=== PATIENT | female | born 1925 | race Caucasian/White ===

== ENCOUNTER 2017-02-24 09:33 | Inpatient (IN) | payer MEDICARE ==
--- NOTE | 2017-02-24 10:12 | ED ---
General Adult HPI - General Chief complaint: Shortness of Breath Stated complaint: sob Time Seen by Provider: 02/24/17 09:40 Source: patient, RN notes reviewed Mode of arrival: wheelchair Limitations: no limitations - History of Present Illness Initial comments: This is an 89-year-old female who comes in accompanied shortness of breath per patient states the shortness of breath started a few days ago and she saw her primary medical care doctor and he wanted her to follow up with cardiology. Patient states she continued to be short of breath especially with exertion. Patient denies any chest pain or palpitations. Patient denies any fever chills or cough. Patient denies abdominal pain patient denies nausea vomiting diarrhea. Patient denies headache patient denies numbness weakness. Patient denies any leg swelling patient denies any calf tenderness. Patient denies any recent trip or travel. - Related Data Home Medications Medication Instructions Recorded Confirmed Acetaminophen [Tylenol Arthritis] 650 mg PO DAILY 02/24/17 02/24/17 Aspirin 81 mg PO DAILY 02/24/17 02/24/17 Diclofenac Sodium Gel [Voltaren 2 gm TOPICAL QID PRN 02/24/17 02/24/17 Gel] Hydrochlorothiazide [Hydrodiuril] 25 mg PO DAILY 02/24/17 02/24/17 Levothyroxine Sodium [Synthroid] 75 mcg PO WE 02/24/17 02/24/17 Levothyroxine Sodium [Synthroid] 100 mcg PO SUMOTUTHFRSA 02/24/17 02/24/17 amLODIPine [Norvasc] 2.5 mg PO DAILY 02/24/17 02/24/17 Allergies Allergy/AdvReac Type Severity Reaction Status Date / Time No Known Allergies Allergy Unverified 02/24/17 10:27 Review of Systems ROS Statement: Those systems with pertinent positive or pertinent negative responses have been documented in the HPI. ROS Other: All systems not noted in ROS Statement are negative. Past Medical History Past Medical History: Osteoarthritis (OA), Thyroid Disorder History of Any Multi-Drug Resistant Organisms: None Reported Past Surgical History: Cholecystectomy, Joint Replacement Past Psychological History: No Psychological Hx Reported Smoking Status: Never smoker Past Alcohol Use History: None Reported Past Drug Use History: None Reported General Exam - General Exam Comments Initial Comments: GENERAL: Patient is well-developed and well-nourished. Patient is nontoxic and well- hydrated and is in mild distress. Patient states she short of breath however she is oxygenating 98% on room air ENT: Neck is soft and supple. No significant lymphadenopathy is noted. Oropharynx is clear. Moist mucous membranes. Neck has full range of motion without eliciting any pain. EYES: The sclera were anicteric and conjunctiva were pink and moist. Extraocular movements were intact and pupils were equal round and reactive to light. Eyelids were unremarkable. PULMONARY: Unlabored respirations. Good breath sounds bilaterally. No audible rales rhonchi or wheezing was noted. CARDIOVASCULAR: Patient is bradycardic at 50 beats a minute ABDOMEN: Soft and nontender with normal bowel sounds. No palpable organomegaly was noted. There is no palpable pulsatile mass. SKIN: Skin is clear with no lesions or rashes and otherwise unremarkable. NEUROLOGIC: Patient is alert and oriented x3. Cranial nerves II through XII are grossly intact. Motor and sensory are also intact. Normal speech, volume and content. Symmetrical smile. MUSCULOSKELETAL: Normal extremities with adequate strength and full range of motion. No lower extremity swelling or edema. No calf tenderness. LYMPHATICS: No significant lymphadenopathy is noted PSYCHIATRIC: Normal psychiatric evaluation. Limitations: no limitations Course Vital Signs 02/24/17 02/24/17 02/24/17 09:41 09:45 11:27 Temperature 97.3 F L Pulse Rate 55 L 45 L Respiratory 18 18 18 Rate Blood Pressure 138/69 137/91 O2 Sat by Pulse 96 98 Oximetry Medical Decision Making - Medical Decision Making EKG shows sinus bradycardia 45 bpm IA interval is 188 QRSs 84 QT interval 486 QTC is 420 per patient's EKG shows no ST segment elevation or depression or T wave abnormalities are noted. Patient's heart rate dipped down into the low 40s. I spoke Dr. Tamez and he agreed to admit the patient admitted the patient I consult cardiology. - Lab Data Result diagrams: 02/24/17 10:02/24/17 10: Lab Results 02/24/17 02/24/17 02/24/17 Range/Units 10: 10: 10: WBC 4.5 (3.8-10.6) k/uL RBC 4.76 (3.80-5.40) m/uL Hgb 15.6 (11.4-16.0) gm/dL Hct 46.5 H (34.0-46.0) % MCV 97.8 (80.0-100.0) fL MCH 32.8 (25.0-35.0) pg MCHC 33.5 (31.0-37.0) g/dL RDW 14.2 (11.5-15.5) % Plt Count 173 (150-450) k/uL Neutrophils % 59 % Lymphocytes % 30 % Monocytes % 7 % Eosinophils % 2 % Basophils % 1 % Neutrophils # 2.7 (1.3-7.7) k/uL Lymphocytes # 1.4 (1.0-4.8) k/uL Monocytes # 0.3 (0-1.0) k/uL Eosinophils # 0.1 (0-0.7) k/uL Basophils # 0.0 (0-0.2) k/uL PT (9.0-12.0) sec INR (<1.2) APTT (22.0-30.0) sec D-Dimer (<0.60) mg/L FEU Sodium 140 (137-145) mmol/L Potassium 3.7 (3.5-5.1) mmol/L Chloride 105 (98-107) mmol/L Carbon Dioxide 24 (22-30) mmol/L Anion Gap 11 mmol/L BUN 16 (7-17) mg/dL Creatinine 0.90 (0.52-1.04) mg/dL Est GFR (MDRD) Af Amer >60 (>60 ml/min/1.73 sqM) Est GFR (MDRD) Non-Af 59 (>60 ml/min/1.73 sqM) Glucose 92 (74-99) mg/dL Calcium 9.7 (8.4-10.2) mg/dL Total Bilirubin 0.8 (0.2-1.3) mg/dL AST 24 (14-36) U/L ALT 23 (9-52) U/L Alkaline Phosphatase 80 (38-126) U/L Total Creatine Kinase 37 (30-135) U/L CK-MB (CK-2) 0.4 (0.0-2.4) ng/mL CK-MB (CK-2) Rel Index 1.1 Troponin I <0.012 (0.000-0.034) ng/mL NT-Pro-B Natriuret Pep pg/mL Total Protein 7.1 (6.3-8.2) g/dL Albumin 4.1 (3.5-5.0) g/dL 02/24/17 02/24/17 Range/Units 10:01 10:01 WBC (3.8-10.6) k/uL RBC (3.80-5.40) m/uL Hgb (11.4-16.0) gm/dL Hct (34.0-46.0) % MCV (80.0-100.0) fL MCH (25.0-35.0) pg MCHC (31.0-37.0) g/dL RDW (11.5-15.5) % Plt Count (150-450) k/uL Neutrophils % % Lymphocytes % % Monocytes % % Eosinophils % % Basophils % % Neutrophils # (1.3-7.7) k/uL Lymphocytes # (1.0-4.8) k/uL Monocytes # (0-1.0) k/uL Eosinophils # (0-0.7) k/uL Basophils # (0-0.2) k/uL PT 11.2 (9.0-12.0) sec INR 1.1 (<1.2) APTT 23.3 (22.0-30.0) sec D-Dimer 0.77 H (<0.60) mg/L FEU Sodium (137-145) mmol/L Potassium (3.5-5.1) mmol/L Chloride (98-107) mmol/L Carbon Dioxide (22-30) mmol/L Anion Gap mmol/L BUN (7-17) mg/dL Creatinine (0.52-1.04) mg/dL Est GFR (MDRD) Af Amer (>60 ml/min/1.73 sqM) Est GFR (MDRD) Non-Af (>60 ml/min/1.73 sqM) Glucose (74-99) mg/dL Calcium (8.4-10.2) mg/dL Total Bilirubin (0.2-1.3) mg/dL AST (14-36) U/L ALT (9-52) U/L Alkaline Phosphatase (38-126) U/L Total Creatine Kinase (30-135) U/L CK-MB (CK-2) (0.0-2.4) ng/mL CK-MB (CK-2) Rel Index Troponin I (0.000-0.034) ng/mL NT-Pro-B Natriuret Pep 220 pg/mL Total Protein (6.3-8.2) g/dL Albumin (3.5-5.0) g/dL Disposition Clinical Impression: Dyspnea, Symptomatic bradycardia Disposition: ADMITTED IP TO THIS HOSP Referrals: Eliud Luna MD [Primary Care Provider] - 1-2 days Time of Disposition: 12:53
[2017-02-24 10:23] LABS: Basophils % (A) 1 %; CH 33.6; CHCM 34.5; Eosinophils # (A) 0.1 k/uL (0-0.7); Eosinophils % (A) 2 %; HCT 46.5 % (34.0-46.0); HDW 2.32; HGB 15.6 gm/dL (11.4-16.0); Luc # (Auto) 0.09; Luc % (Auto) 2; Lymphocytes # (A) 1.4 k/uL (1.0-4.8); Lymphocytes % (A) 30 %; MCH 32.8 pg (25.0-35.0); MCHC 33.5 g/dL (31.0-37.0); MCV 97.8 fL (80.0-100.0); Mean Platelet Volume 9.6; Monocytes # (A) 0.3 k/uL (0-1.0); Monocytes % (A) 7 %; Neutrophils # (A) 2.7 k/uL (1.3-7.7); Neutrophils % (A) 59 %; RBC 4.76 m/uL (3.80-5.40); RDW 14.2 % (11.5-15.5); WBC 4.5 k/uL (3.8-10.6)
[2017-02-24 10:28] LABS: INR 1.1 (<1.2)
[2017-02-24 10:29] LABS: Partial Thromboplastin Time 23.3 sec (22.0-30.0); Prothrombin Time 11.2 sec (9.0-12.0)
[2017-02-24 10:35] LABS: ALT 23 U/L (9-52); AST 24 U/L (14-36); Alkaline Phosphatase 80 U/L (38-126); Anion Gap 11 mmol/L; Blood Urea Nitrogen 16 mg/dL (7-17); Calcium 9.7 mg/dL (8.4-10.2); Carbon Dioxide 24 mmol/L (22-30); Chloride 105 mmol/L (98-107); Glucose 92 mg/dL (74-99); Non-African American GFR(MDRD) 59 (>60 ml/min/1.73 sqM); Potassium 3.7 mmol/L (3.5-5.1); Sodium 140 mmol/L (137-145); Total Bilirubin 0.8 mg/dL (0.2-1.3); Total Protein 7.1 g/dL (6.3-8.2)
[2017-02-24 10:40] LABS: Creatine Kinase 37 U/L (30-135)
[2017-02-24 10:53] LABS: Creatine Kinase MB 0.4 ng/mL (0.0-2.4); Troponin I <0.012 ng/mL (0.000-0.034)
[2017-02-24] MEDS ORDERED: RX INFO: IV CONTRAST WAS GIVEN 1 EACH MISC MISCELLANE PRN (11:26)
--- NOTE | 2017-02-24 11:44 | XR ---
EXAMINATION TYPE: XR chest 2V DATE OF EXAM: 02/24/2017 HISTORY: difficulty breathing. REFERENCE: NONE. FINDINGS: The lungs are clear. Pleural spaces are clear. The heart is not enlarged. IMPRESSION: NO ACUTE INTRATHORACIC ABNORMALITY.
--- NOTE | 2017-02-24 12:36 | CT ---
EXAMINATION TYPE: CT chest angio for PE DATE OF EXAM: 02/24/2017 COMPARISON: NONE HISTORY: SOB, burping CT DLP: 374.0 mGycm Automated exposure control for dose reduction was used. CONTRAST: CT Chest for pulmonary embolism performed with with IV Contrast, patient injected with 80 mL of Visip aque 320. FINDINGS: There is a tiny, calcified granuloma along the major fissure on the right. The lungs are ot herwise clear. There is no significant axillary, internal mammary, mediastinal or hilar adenopathy. There is no evidence of pulmonary embolus. The aorta is normal in caliber without evidence of dissection. There is no pleural or pericardial fluid. The heart is not enlarged. There is a moderate hiatal hernia. There is probable parapelvic cysts involving both kidneys. Visualized portions of the upper abdomen a re otherwise unremarkable. The gallbladder is absent. There is hypertrophic spondylosis within the spine. There are 2 sclerotic foci within the left yahir l head. No other definite sclerotic foci are seen. IMPRESSION: 1. THIS EXAMINATION IS NEGATIVE FOR PULMONARY EMBOLUS. 2. EVIDENCE OF OLD GRANULOMATOUS DISEASE. 3. MODERATE HIATAL HERNIA. 4. DEGENERATIVE CHANGES WITHIN THE SPINE. 5. I SUSPECT BILATERAL PELVOCALIECTASIS INVOLVING BOTH KIDNEYS. 7. SCLEROTIC FOCI IN THE LEFT HUMERAL HEAD. NUCLEAR MEDICINE WHOLE BODY BONE SCAN WOULD BE SUGGESTED TO EXCLUDE METASTASES.
[2017-02-24] MEDS ORDERED: NITROGLYCERIN SL TABS 0.4 MG TAB SUBLINGUAL PRN (12:53)
[2017-02-24 15:35] VITALS: BMI 28.5
[2017-02-24 16:47] LABS: Creatine Kinase 36 U/L (30-135)
--- NOTE | 2017-02-24 16:52 | HP ---
HISTORY AND PHYSICAL DATE OF SERVICE: 02/24/2017. CHIEF COMPLAINT: Shortness of breath. HISTORY: This 89-year-old woman with an past medical history of multiple medical problems including degenerative joint disease, hypothyroidism, cholecystectomy being followed by Dr. Luna in the outpatient setting, not feeling well over the past several days. Patient had multiple symptomatology and burning sensation, history of hip pain. The patient also had shortness of breath for the last few days. Cardiology evaluation has been recommended in the outpatient setting, but because of increased shortness of breath especially on exertion, the patient came to [facility] and admitted for further evaluation and treatment. Evaluation showed NT proBNP is only 220 and basic labs are negative. Otherwise the patient also had a chest x-ray, which is personally reviewed by me that showed no acute abnormality and EKG was also done on the day of admission which showed bradycardia with heart rate about 45. Chest CTA was also done which showed no evidence of pulmonary embolism but there is old granulomatous, moderate hiatal hernia and DJD. There is no history of fever or rigors. No headache, loss of consciousness or seizures. PAST MEDICAL HISTORY: DJD, history of hypothyroidism, cholecystectomy, hysterectomy. MEDICATIONS: Prior to admission include: 1. Tylenol 650 daily. 2. Voltaren 2 g daily q.i.d. p.r.n. 3. Aspirin 81 mg daily. 4. Norvasc 2.5 mg daily. 5. Synthroid 150 mcg Saturday and 100 mcg other days. 6. HydroDIURIL 25 mg daily. ALLERGIES: ASPIRIN, NITROGLYCERIN. FAMILY HISTORY: No history of cancer in the family. SOCIAL HISTORY: No smoking, no alcohol intake. REVIEW OF SYSTEMS: ENT: No diminished hearing or vision. CARDIOVASCULAR: As mentioned earlier. RESPIRATORY: As mentioned earlier. GI: No nausea. : No dysuria. NERVOUS SYSTEM: No numbness or weakness. ALLERGY/IMMUNOLOGY: No asthma or hayfever. MUSCULOSKELETAL: As mentioned earlier. HEMATOLOGY/ONCOLOGY: No history of anemia. ENDOCRINE: As mentioned earlier. CONSTITUTIONAL: As mentioned earlier. DERMATOLOGY: Negative. RHEUMATOLOGY: Negative. PSYCHIATRY: As mentioned earlier. PHYSICAL EXAM: Patient is alert, oriented x3. Pulse is 45, blood pressure 137/91, respiration 18, temperature 97.2, pulse ox 98% room air. HEENT: Conjunctivae normal. Oral mucosa moist. NECK: No jugular venous distention. No lymph node enlargement. CARDIOVASCULAR: S1, S2. No S3, no S4. RESPIRATORY: Breath sounds diminished in the bases. A few scattered rhonchi. No crackles. ABDOMEN: Soft, nontender. No mass palpable. LEGS: No edema, no swelling. NERVOUS SYSTEM: Higher functions as mentioned earlier. Moves all four limbs. No focal deficits. LYMPHATICS: No lymphadenopathy in the neck, axillae or groin. SKIN: No rash, ulcer or bleeding. LABS: At this time shows WBC 4.2, hemoglobin 15.6, hemoglobin 11.2. ASSESSMENT: 1. Shortness of breath for evaluation rule out cardiac causes. 2. Bradycardia sinus. 3. Elevated D-dimer with no evidence of pulmonary embolus. 4. History of degenerative joint disease. 5. Hypothyroidism. 6. History of cholecystectomy. RECOMMENDATION: This 89-year-old woman who presented with multiple complex medical issues, will monitor the patient closely. Continue the current medications, continue symptomatic treatment. I recommend a TSH and I would also recommend resume the home medications. Otherwise exact etiology of the shortness of breath is unclear at this time. I would recommend a full cardiac workup, NT proBNP is not elevated but I will recommend a 2D echo with Doppler to rule out the possibility of congestive heart failure. Otherwise cardiology consultations. I would also consult pulmonology for continued follow up with COPD also. Further evaluation COPD as well. Otherwise the prognosis is guarded because of multiple complex medical issues. Bradycardia has been noted. Further recommendations to follow. Copy of dictation forwarded to Dr. Luna, who is the primary physician. MMODL / IJN: [id number] /
[2017-02-24 16:59] LABS: Creatine Kinase MB 0.5 ng/mL (0.0-2.4); Troponin I <0.012 ng/mL (0.000-0.034)
[2017-02-24] MEDS: LEVOTHYROXINE 100 MCG TAB PO SCH (20:31)
[2017-02-24] MEDS: DICLOFENAC SODIUM GEL 100 GM TUBE TOPICAL PRN (21:14)
[2017-02-24 23:05] LABS: Creatine Kinase 56 U/L (30-135)
[2017-02-24 23:17] LABS: Troponin I <0.012 ng/mL (0.000-0.034)
[2017-02-25 02:29] LABS: Cholesterol 188 mg/dL (<200); HDL Cholesterol 56 mg/dL (40-60)
[2017-02-25] MEDS: LEVOTHYROXINE 100 MCG TAB PO SCH (06:17)
[2017-02-25] MEDS ORDERED: ACETAMINOPHEN TAB 325 MG TAB PO PRN (09:00)
[2017-02-25] MEDS: DICLOFENAC SODIUM GEL 100 GM TUBE TOPICAL PRN ×2 (09:55→15:53)
[2017-02-25] MEDS: amLODIPine 2.5 MG TAB PO SCH (09:56)
[2017-02-25] MEDS: HYDROCHLOROTHIAZIDE 25 MG TAB PO SCH (09:57)
[2017-02-25] MEDS: ASPIRIN 325 MG TAB PO SCH (09:57)
--- NOTE | 2017-02-25 10:57 | ECHOF ---
Referral Reason:chf?? MEASUREMENTS -------- HEIGHT: 170.2 cm WEIGHT: 82.6 kg BP: 119/70 RVIDd: 3.0 cm (< 3.3) IVSd: 1.0 cm (0.6 - 1.1) LVIDd: 4.2 cm (3.9 - 5.3) LVPWd: 1.0 cm (0.6 - 1.1) IVSs: 1.6 cm LVIDs: 2.6 cm LVPWs: 1.4 cm LA Diam: 3.4 cm (2.7 - 3.8) LAESV Index (A-L): 33.71 ml/m Ao Diam: 3.2 cm (2.0 - 3.7) AV Cusp: 2.2 cm (1.5 - 2.6) MV EXCURSION: 14.577 mm (> 18.000) MV EF SLOPE: 66 mm/s (70 - 150) EPSS: 0.3 cm MV E Ahmet: 0.76 m/s MV DecT: 262 ms MV A Ahmet: 1.08 m/s MV E/A Ratio: 0.70 RAP: 5.00 mmHg RVSP: 30.53 mmHg FINDINGS -------- Resting bradycardia (HR<60bpm). This was a technically good study. The left ventricular size is normal. Left ventricular wall thickness is normal. Overall left ventricular systolic function is normal with, an EF between 55 - 60 %. The right ventricle is normal in size. LA is midly dilated 29-33ml/m2. The right atrium is normal in size. There is mild aortic valve sclerosis. Mild mitral annular calcification present. There is trace to mild mitral regurgitation. Mild tricuspid regurgitation present. Right ventricular systolic pressure is normal at < 35 mmHg. Trace/mild (physiologic) pulmonic regurgitation. The aortic root size is normal. Normal inferior vena cava with normal inspiratory collapse consistent with estimated right atrial pressure of 5 mmHg. There is no pericardial effusion. CONCLUSIONS -------- 1. Resting bradycardia (HR<60bpm). 2. Mild mitral annular calcification present. 3. There is trace to mild mitral regurgitation. 4. Mild tricuspid regurgitation present. 5. Right ventricular systolic pressure is normal at < 35 mmHg. 6. Trace/mild (physiologic) pulmonic regurgitation. 7. The aortic root size is normal. 8. Normal inferior vena cava with normal inspiratory collapse consistent with estimated right atrial pressure of 5 mmHg. 9. There is no pericardial effusion. 10. This was a technically good study. 11. The left ventricular size is normal. 12. Left ventricular wall thickness is normal. 13. Overall left ventricular systolic function is normal with, an EF between 55 - 60 %. 14. The right ventricle is normal in size. 15. LA is midly dilated 29-33ml/m2. 16. The right atrium is normal in size. 17. There is mild aortic valve sclerosis. TOY DESIGNER: Angela Sprague RDCS
--- NOTE | 2017-02-25 12:35 | CONS ---
CONSULTATION Mrs. Holloway is an 89-year-old female with no prior significant cardiac history except for history of hypertension, who has significant hip discomfort, who presented with symptoms of dyspnea and predominantly hip discomfort. She has not been able to ambulate. She has history of neuropathy. In the emergency room, she was noted to have sinus bradycardia. Cardiology consultation was requested. The patient denies any symptoms of chest pain. She denies any associated dizziness. She denies any syncope. She has no palpitation or knowledge of any prior cardiac history. On the monitor, she is in sinus mechanism. There was no significant pauses and she had variant heart rate with the heart rate up in the 60s. She has no peripheral edema. No PND. No orthopnea. Her coronary risk factors are remarkable for history of hypertension. She is nondiabetic, nonsmoker. MEDICATION: Her medications at home include amlodipine 2.5 mg daily, hydrochlorothiazide 25 mg daily, levothyroxine, aspirin, and Voltaren gel. REVIEW OF SYSTEMS: RESPIRATORY SYSTEM: She has no history of documented asthma, emphysema or bronchitis. GI SYSTEM: No recent GI bleed. No peptic ulcer disease. SYSTEM: No dysuria or hematuria. NERVOUS SYSTEM: No history of stroke or seizure. MUSCULOSKELETAL: She has severe hip discomfort bilaterally with history of neuropathy. PHYSICAL EXAMINATION: She is an 89-year-old female; alert, oriented, in no apparent distress. Blood pressure 119/70 with a heart rate in the mid 50s. The lowest heart rate documented was 45. HEAD: Normocephalic. EYES: Sclerae anicteric. NECK: Good upstroke. No bruit. No jugular venous distention. LUNGS: Clear to auscultation. HEART: Regular rhythm S1, S2. No S3. No rub or gallop appreciated. ABDOMEN: Soft, nontender. Positive bowel sounds. No organomegaly. EXTREMITIES: No edema. Intact distal pulses. LAB DATA: Lab data revealed troponin less than 0.012 for 3 samples. Free T4 1.83. BUN and creatinine of 16.9. Potassium 3.7. Her hemoglobin 15.6. D-dimer of 0.77. She underwent CT angiogram of the chest that revealed no evidence of pulmonary embolism. There was moderate hiatal hernia and sclerotic foci in the left humeral head. EKG was sinus mechanism rate in the 40s with no acute ST-segment changes. IMPRESSION: 1. Sinus bradycardia with no clear associated symptoms. 2. Hip discomfort with history of arthritis. 3. Episode of dyspnea with no evidence to suggest congestive heart failure or fluid overload. I do not believe that her bradycardia has any relation to her symptoms. 4. History of hypothyroidism, treated. RECOMMENDATION: From the cardiac standpoint, I will review the results for echocardiogram and if there is no significant abnormality, then no further cardiac workup will be needed. The patient may benefit from a Holter monitor as an outpatient to monitor her heart rate, but at this time, I do not see any evidence to suggest a need for a pacemaker. Thank you for this consult. We will follow with you. QUINN / JULIANAN: [id number] /
--- NOTE | 2017-02-25 14:19 | P.CNPUL ---
History of Present Illness Consult date: 02/25/17 Reason for consult: dyspnea Chief complaint: Shortness of breath History of present illness: Consult dated 02/25/2017 89-year-old female who apparently comes in complaining of shortness of breath. Apparently saw her primary physician Dr. Eliud Gutiérrez and he wanted her to go to the emergency room to be evaluated. She was noted to have a very slow heart rate is noted in the mid 40s. On talking to her, she apparently complains mostly of burping. Doesn't really admit to some shortness of breath. Also was told about the low heart rate. Denies any chest pain or chest discomfort. No shortness of breath. The patient wasn't even aware of the slow heart rate and denies any lightheadedness dizziness or vertigo. Actually feeling pretty well today. Very poor historian. Family members in the room. Most of the history is obtained from the family members and also the ER anay by Dr. Ernesto Fuller. She has a history of arthritis hypertension hypothyroidism. Other than that she is relatively healthy. Review of Systems A 12 point review of systems is mostly positive for burping. She apparently does admit to some shortness of breath although her history is not very good. Very poor history computer graphic designer. Most of the history is obtained from the ER anay and also by the family members were at the bedside. Past Medical History Past Medical History: Osteoarthritis (OA), Thyroid Disorder History of Any Multi-Drug Resistant Organisms: None Reported Past Surgical History: Cholecystectomy, Hysterectomy, Joint Replacement Past Anesthesia/Blood Transfusion Reactions: No Reported Reaction Past Psychological History: No Psychological Hx Reported Smoking Status: Never smoker Past Alcohol Use History: None Reported Past Drug Use History: None Reported - Past Family History Father Family Medical History: Cancer Mother Family Medical History: Congestive Heart Failure (CHF) Medications and Allergies Home Medications Medication Instructions Recorded Confirmed Type Acetaminophen [Tylenol Arthritis] 650 mg PO DAILY 02/24/17 02/24/17 History Aspirin 81 mg PO DAILY 02/24/17 02/24/17 History Diclofenac Sodium Gel [Voltaren 2 gm TOPICAL QID PRN 02/24/17 02/24/17 History Gel] Hydrochlorothiazide [Hydrodiuril] 25 mg PO DAILY 02/24/17 02/24/17 History Levothyroxine Sodium [Synthroid] 75 mcg PO WE 02/24/17 02/24/17 History Levothyroxine Sodium [Synthroid] 100 mcg PO SUMOTHONEYSA 02/24/17 02/24/17 History amLODIPine [Norvasc] 2.5 mg PO DAILY 02/24/17 02/24/17 History Allergies Allergy/AdvReac Type Severity Reaction Status Date / Time No Known Allergies Allergy Unverified 02/24/17 10:27 Physical Exam Osteopathic Statement: *. No significant issues noted on an osteopathic structural exam other than those noted in the History and Physical/Consult. Vitals: Vital Signs Temp Pulse Pulse Resp BP BP Pulse Ox 02/25/17 11:49 97.7 F 48 L 18 126/88 96 02/25/17 08:00 96.9 F L 46 L 16 144/69 96 02/25/17 04:00 96.5 F L 54 L 18 119/70 93 L 02/25/17 00:00 97.6 F 50 L 19 125/55 97 02/24/17 20:00 98.5 F 56 L 19 119/72 95 02/24/17 16:00 97.8 F 46 L 17 132/80 95 02/24/17 15:00 97.8 F 48 L 16 134/79 95 02/24/17 14:17 97.5 F L 48 L 16 149/65 97 Intake and Output 02/24/17 02/25/17 02/25/17 22:59 06:59 14:59 Intake Total 50 Output Total 0 1000 Balance 0 -950 Intake: Oral 50 Output: Urine 0 1000 Other: Voiding Method Toilet Toilet Toilet # Voids 2 Weight 82.6 kg 82.7 kg No acute distress, oriented 3. HEENT examination is grossly unremarkable. Mucous membranes are moist. Neck supple. Full range of motion. No adenopathy or thyromegaly. Cardiovascular examination reveals regular rhythm rate. Heart rate in the mid 40s. No murmur. No S3-S4. S1 and S2 appear normal. Lungs are clear breath sounds are equal. No wheezes or rhonchi. No crackles. Abdomen soft bowel sounds are heard. Extremities are intact. No cyanosis clubbing or significant edema. Skin without rash. Neurologic examination is prepared nonfocal. Results - Laboratory Findings CBC and BMP: 02/24/17 10:01 02/24/17 10:01 PT/INR, D-dimer PT 11.2 sec (9.0-12.0) 02/24/17 10:01 INR 1.1 (<1.2) 02/24/17 10:01 D-Dimer 0.77 mg/L FEU (<0.60) H 02/24/17 10:01 Abnormal lab findings: Abnormal Labs 02/24/17 02/24/17 02/24/17 10:01 10: 10:01 Hct 46.5 H D-Dimer 0.77 H LDL Cholesterol, Calc TSH 0.032 L 02/24/17 10:01 Hct D-Dimer LDL Cholesterol, Calc 103 H TSH - Diagnostic Findings Chest x-ray: image reviewed CT scan - chest: image reviewed (X-rays labs and medications are all reviewed.) Assessment and Plan (1) Hypertension Status: Acute (2) Hypothyroidism Status: Acute (3) Arthritis Status: Acute (4) Dyspnea Status: Acute (5) Symptomatic bradycardia Status: Acute Plan: Plan The patient was admitted to the hospital primarily because of her low heart rate. She does not appear to be relatively relatively symptomatic from it. She is not lightheaded dizzy. No chest pain. Doesn't have any vertigo. Does not appear to be short of breath at this time. She is very poor historian. Not really sure what brought into the hospital initially. We'll continue to follow. Cardiology input is appreciated. Time with Patient: Greater than 30
--- NOTE | 2017-02-25 17:47 | PN ---
PROGRESS NOTE DATE OF SERVICE: 02/25/2017 ATTENDING NOTE: This patient was seen and examined by me. I discussed with my nurse practitioner, Ms. Cutler. The patient was brought in for a multitude of symptoms. She says that she hurts in different joints, has neuropathy, has difficulty walking, just feels tired and rundown. Appetite is fair. Breathing is relatively okay. No orthopnea. No fever. No cough. Family members are present at the bedside. PHYSICAL EXAMINATION: Temperature 96.9, pulse 46, respiration 16, blood pressure 140/69, pulse ox 96% room air. GENERAL APPEARANCE: Sitting on bed. Comfortable. Asking for food. Lungs are clear. CARDIOVASCULAR: First and second sounds normal. INVESTIGATIONS: Troponin negative. TSH 0.032. ASSESSMENT: 1. Subclinical hyperthyroidism, probably from a bit of overreplacement. 2. Primary osteoarthritis multiple joints, bilateral. 3. Peripheral neuropathy, idiopathic, causing gait dysfunction. 4. Benign forgetfulness of the elderly. 5. Physiological bradycardia. PLAN: Cardiology was consulted when I saw this patient this morning; awaiting their input. This may not be entirely clinically relevant. I do not see a pulmonary issue. Will change the patient's dose of Synthroid to 88 mcg a day. Care was discussed with the family members at the bedside. Questions were answered. Everything else being negative, patient probably can go back home tomorrow. MMODL / IJN: [id number] /
--- NOTE | 2017-02-25 18:07 | P.PN ---
Progress Note - Text DATE OF SERVICE: 02/25/2017 PRESENTING COMPLAINT: Shortness of breath HISTORY OF PRESENT ILLNESS: 89-year-old female percent with not feeling well, symptoms included shortness of breath, hip pain feeling tired. Found to be bradycardic and was admitted for the same. INTERVAL HISTORY: Patient lying in bed appears comfortable. Continues to be bradycardic, cardiology will review echocardiogram. Has not been out of bed as she has concerns of balance problems. Is able to walk to the bathroom with assistance. Tolerating her diet. REVIEW OF SYSTEMS: Done for constitutional ,cardiovascular, GI, pulmonary with relevant findings as above. CURRENT MEDICATIONS Norvasc, Voltaren gel, hydro-Diuril, Synthroid,. PHYSICAL EXAM VITAL SIGNS: Temperature 96.9, pulse 46, respiratory rate 16, blood pressure 144/69, oxygen saturation 96% on room air. GENERAL APPEARANCE: Lying in bed, not in distress. EYES: Pupils equal. Conjunctiva normal. NECK: JVD not raised. Mass not palpable. RESPIRATORY: Respiratory effort normal. Lungs diminished to auscultation. CARDIOVASCULAR: First and second sounds normal. No edema. ABDOMEN: Soft. Liver and spleen not palpable. No tenderness. No mass palpable. PSYCHIATRY: Alert and oriented x3. Mood and affect normal. INVESTIGATIONS: None new ASSESSMENT: -Subclinical hyperthyroidism, probably from a bit of over replacement. -Primary osteoarthritis multiple joints, bilateral. -Peripheral neuropathy, idiopathic causing gait dysfunction. -Benign forgetfulness of the elderly. -Physiologic bradycardia. PLAN: Cardiology review the echocardiogram if no abnormalities seen recommending a Holter monitor. Plan of care discussed with the patient and the family at the bedside. They are in Agreement. We will continue to follow closely. JIG BUILDER statement: Patient was seen and examined by nurse practitioner Lauryn Cutler and all elements of the case discussed with attending Dr. Nichols
[2017-02-26] MEDS ORDERED: LEVOTHYROXINE 88 MCG TAB PO SCH (06:30)
[2017-02-26] MEDS: DICLOFENAC SODIUM GEL 100 GM TUBE TOPICAL PRN (08:38)
[2017-02-26] MEDS: HYDROCHLOROTHIAZIDE 25 MG TAB PO SCH ×2 (08:39→10:00)
[2017-02-26] MEDS: amLODIPine 2.5 MG TAB PO SCH ×2 (08:39→10:00)
[2017-02-26] MEDS: ASPIRIN 325 MG TAB PO SCH ×2 (08:39→10:00)
[2017-02-26 11:50] VITALS: BP 125/56; PULSE 49; RESP 16; TEMP 98.3
--- NOTE | 2017-02-26 12:19 | P.PN ---
Subjective Progress note dated 02/26/2017 This is an 89-year-old female patient who was seen in consultation on February 25. She apparently came with complaints of shortness of breath. She apparently saw her primary physician and he wanted her to go to the emergency room not only for the shortness of breath but more importantly for the fact that her heart rate was very slow in the mid 40s. Her major complaint we saw her yesterday was that of burping. Did not really admitting Alec shortness of breath. No chest pain. No chest discomfort. No fever chills nausea vomiting or diarrhea. She is feeling better today. She is waiting to see the veneer stacker. Both her and her have questions for the veneer stacker. She has a history of arthritis hypertension and hypothyroidism. Objective - Vital Signs Vital signs: Vital Signs Temp 98.3 F 02/26/17 11:47 Pulse 49 L 02/26/17 11:47 Resp 16 02/26/17 11:47 BP 125/56 02/26/17 11:47 Pulse Ox 93 L 02/26/17 11:47 Intake & Output 02/25/17 02/26/17 02/26/17 18:59 06:59 18:59 Intake Total 130 Output Total 300 Balance 130 -300 Weight 82.9 kg Intake: IV 10 normal saline flush 10 Oral 120 Output: Urine 300 Other: Voiding Method Toilet Toilet Toilet # Voids 1 - Exam No acute distress, oriented 3. HEENT examination is grossly unremarkable. Mucous membranes are moist. No oral lesions. Neck supple. Full range of motion. No adenopathy thyromegaly or neck vein distention. Cardiovascular examination reveals bradycardia. Heart rate mid 40s. S1-S2 normal. No S3-S4. No murmurs. Clear breath sounds. No wheezes or rhonchi. No crackles. Abdomen soft bowel sounds are heard. Extremities are intact. Mild edema. No cyanosis or clubbing. Neurologic examination is prepared nonfocal. Skin is without rash. - Labs CBC & Chem 7: 02/24/17 10:01 02/24/17 10:01 Assessment and Plan (1) Hypertension Status: Acute (2) Hypothyroidism Status: Acute (3) Arthritis Status: Acute (4) Dyspnea Status: Acute (5) Symptomatic bradycardia Status: Acute Plan: Plan The patient was admitted to the hospital primarily because of her low heart rate. She does not appear to be relatively relatively symptomatic from it. She is not lightheaded dizzy. No chest pain. Doesn't have any vertigo. Does not appear to be short of breath at this time. She is very poor historian. Not really sure what brought into the hospital initially. We'll continue to follow. Cardiology input is appreciated. Plan dated 02/26/2017 The patient is waiting to see the veneer stacker. She's here with her . She has no neurologic symptoms such as lightheadedness dizziness or vertigo. She appears not having shortness of breath or difficulty breathing. Not having any further problems with burping or anything like that. We'll await the input by cardiology. Her primary doctor Dr. Eliud Luna. From our perspective she is stable. Time with Patient: Less than 30
--- NOTE | 2017-02-26 15:06 | PN ---
PROGRESS NOTE Mrs. Holloway is an 89-year-old female who presented with symptoms of fatigue and she had sinus bradycardia with no significant pauses. She continues to be fatigued although on the monitor she continues to be in sinus mechanism with no malignant bradyarrhythmia. She denies any chest pain. She denies any dizziness or palpitation. She continues to be at this time on amlodipine 2.5 mg daily, aspirin once a day, hydrochlorothiazide 25 mg daily, levothyroxine, baclofen. PHYSICAL EXAMINATION: Blood pressure 125/60 with a heart in the 50's. LUNGS: Clear. HEART: Regular rate and rhythm, S1, S2. No S3 with systolic murmur. No diastolic murmur. ABDOMEN: Soft, nontender. EXTREMITIES: No edema. LAB DATA: Revealed troponin less than 0.012. Her echocardiogram revealed preserved ventricular size and systolic function. IMPRESSION: 1. Sinus bradycardia with no malignant bradyarrhythmia to require a pacemaker at this time. 2. History of arthritis. 3. Fatigue of unclear etiology. RECOMMENDATION: From the cardiac standpoint, she should be able to be discharged home and will obtain a 24-hour Holter monitor as an outpatient to see if she has any significant pauses and if so, then she may be a candidate for a permanent pacemaker. She will follow up with Dr. Pugh as an outpatient. QUINN / JULIANAN: [id number] /
--- NOTE | 2017-02-26 18:08 | P.DS ---
Providers Date of admission: 02/24/17 12:53 Expected date of discharge: 02/26/17 Attending physician: Anmol Nichols Consults: 02/24/17 12:53 Consult Physician Urgent Consulting Provider: [facility] Reason/Comments: Symptomatic bradycardia Do you want consulting provider notified?: Yes 02/24/17 15:58 Consult Physician Routine Consulting Provider: Shirley Renae Reason/Comments: copd?? Do you want consulting provider notified?: Yes Primary care physician: [facility] Course: FINAL DIAGNOSES: -Subclinical hyperthyroidism, probably from a bit of over replacement. -Primary Kevin arthritis multiple joints bilateral. -Peripheral neuropathy, idiopathic causing gait dysfunction. -Benign forgetfulness of the elderly. -physiologic bradycardia. HOSPTIAL COURSE: This an 89-year-old female who presented with not feeling well, symptoms include shortness of breath hip pain feeling tired. Diagnostic testing revealed bradycardia the patient was admitted for the same. Cardiology was consulted, medications adjusted, no bradycardia arrhythmia noted. Determined a 24-hour Holter monitor to evaluate for any significant pauses and to determine if she is a candidate for pacemaker. Overall condition improved, feeling less tired than on admission, able to ambulate to the bathroom independently, tolerating her diet eating 50-75% of her meals, moving her bowels. Condition stabilized and patient is appropriate for discharge. PHYSICAL EXAM: CARDIOVASCULAR: First and second sound noted no edema RESPIRATORY: Effort normal lungs clear to auscultation MUSKULOSKELETAL: Ambulatory with a steady gait PSYCHIATRY: Alert and oriented 3 mood and affect normal Patient was seen and examined by nurse practitioner Lauryn Cutler in all elements of the case discussed with attending Dr. Nichols DISPOSITION: Discharge home to the care of her family Plan - Discharge Summary New Discharge Prescriptions: New Levothyroxine Sodium [Synthroid] 88 mcg PO DAILY@0630 #30 tab Nitroglycerin Sl Tabs [Nitrostat] 0.4 mg SUBLINGUAL Q5M PRN #20 tab PRN Reason: Chest Pain Continue Diclofenac Sodium Gel [Voltaren Gel] 2 gm TOPICAL QID PRN PRN Reason: Pain Aspirin 81 mg PO DAILY amLODIPine [Norvasc] 2.5 mg PO DAILY Hydrochlorothiazide [Hydrodiuril] 25 mg PO DAILY Acetaminophen [Tylenol Arthritis] 650 mg PO DAILY Discontinued Levothyroxine Sodium [Synthroid] 75 mcg PO WE Levothyroxine Sodium [Synthroid] 100 mcg PO SUMOTUTHFRSA Discharge Medication List Acetaminophen [Tylenol Arthritis] 650 mg PO DAILY 02/24/17 [History] Aspirin 81 mg PO DAILY 02/24/17 [History] Diclofenac Sodium Gel [Voltaren Gel] 2 gm TOPICAL QID PRN 02/24/17 [History] Hydrochlorothiazide [Hydrodiuril] 25 mg PO DAILY 02/24/17 [History] amLODIPine [Norvasc] 2.5 mg PO DAILY 02/24/17 [History] Levothyroxine Sodium [Synthroid] 88 mcg PO DAILY@0630 #30 tab 02/26/17 [Rx] Nitroglycerin Sl Tabs [Nitrostat] 0.4 mg SUBLINGUAL Q5M PRN #20 tab 02/26/17 [Rx ] Follow up Appointment(s)/Referral(s): Tony Pugh MD [STAFF PHYSICIAN] - 03/07/17 9:45 am () [facility], [NON-STAFF] - As Needed Eliud Luna MD [Primary Care Provider] - 03/01/17 11:30 am (with PLACEMENT ASSISTANT) Ambulatory/Diagnostic Orders: Basic Metabolic Panel [LAB.AMB] Location: Determined By Patient TSH, 3rd Generation [LAB.AMB] Time Frame: 1 Week, Location: Determined By Patient Patient Instructions/Handouts: Holter Monitoring (DC), Bradycardia (DC) Activity/Diet/Wound Care/Special Instructions: TSH Lab should be drawn in about 3 weeks not a week. Discharge Disposition: HOME SELF-CARE
[2017-02-27] MEDS ORDERED: LEVOTHYROXINE 75 MCG TAB PO SCH (06:30)
--- NOTE | 2017-02-27 07:25 | DS ---
DISCHARGE SUMMARY DATE OF SERVICE: 02/26/2017 ATTENDING NOTE: This patient was seen and examined by me. I discussed with my nurse practitioner, Ms. Cutler. The patient is doing well. Treated for subclinical hyperthyroidism, Synthroid has been cut back. The patient has got physiological bradycardia. Cardiology is going to give a Holter monitor to rule out any arrhythmias as an outpatient. Care was discussed with the and the son at the bedside. Questions were answered. The patient is keen to go home. ON EXAMINATION: LUNGS: Slightly decreased breath sounds. CARDIOVASCULAR: First and second sounds normal. The EKG shows sinus bradycardia. Patient's heart rate had gone down to the 40s when she initially presented. Follow up with Cardiology for Holter monitor as outpatient. New dose of Synthroid is 88 mcg. Patient to have repeat TSH in 4 weeks time. MMODL / IJN: [id number] /
== END 2017-02-26 16:20 | disposition home health service (06) | DRG 645 ==
LOC: EC 09:33 → 6SEL 12:53
PROVIDERS: ADMIT Hospitalist; ATTEND Hospitalist
DX: E05.40 Thyrotoxicosis factitia without thyrotoxic crisis or storm (principal); G62.9 Polyneuropathy, unspecified; R00.1 Bradycardia, unspecified; E03.9 Hypothyroidism, unspecified; I10 Essential (primary) hypertension; M15.9 Polyosteoarthritis, unspecified; R79.1 Abnormal coagulation profile; K44.9 Diaphragmatic hernia without obstruction or gangrene; R26.9 Unspecified abnormalities of gait and mobility; Z79.82 Long term (current) use of aspirin; Z79.899 Other long term (current) drug therapy; Z96.60 Presence of unspecified orthopedic joint implant; Z82.49 Family history of ischemic heart disease and other diseases of the circulatory system
CPT/HCPCS: 36415; 71020; 71275; 80053; 80061; 82550; 82553; 83880; 84439; 84443; 84484; 85025; 85379; 85610; 85730; 93005; 93225; 93226; 93306; 99285

== ENCOUNTER → 2017-05-21 | Outpatient (CLI) | payer MEDICARE ==
[2017-05-21 17:53] LABS: CH 32.6; CHCM 32.4; HCT 48.2 % (34.0-46.0); HDW 2.21; HGB 15.6 gm/dL (11.4-16.0); MCH 32.6 pg (25.0-35.0); MCHC 32.3 g/dL (31.0-37.0); Macrocytosis Slight; RBC 4.78 m/uL (3.80-5.40); RDW 14.4 % (11.5-15.5); WBC 6.3 k/uL (3.8-10.6)
[2017-05-21 17:56] LABS: Potassium 4.1 mmol/L (3.5-5.1)
== END | disposition home or self-care (01) ==
LOC: LABPAT 17:25
PROVIDERS: ATTEND Internal Medicine Interventional Cardiology
DX: Z01.812 Encounter for preprocedural laboratory examination (principal); I49.3 Ventricular premature depolarization
CPT/HCPCS: 36415; 80051; 82565; 84520; 85027

== ENCOUNTER → 2017-05-23 | Day surgery (SDC) | payer MEDICARE ==
[2017-05-22 08:18] VITALS: BMI 27.3
[~2017-05-23] MED LIST: ALPRAZolam 0.25 MG TAB PO PRN; ALPRAZolam 0.5 MG TAB PO PRN; ASPIRIN 325 MG TAB PO STA; HEPARIN SODIUM 1,000 UN/ML (10ML VL) ONE; IODIXANOL 320 MG/ML 100 ML INTRAARTER ONE; LIDOCAINE 2% INJ 20 MG/ML (20 ML MDV) ONE; LIDOCAINE 2% INJ 20 MG/ML SQ ONE; MIDAZOLAM 2 MG/2 ML VIAL IV ONE; MIDAZOLAM 2 MG/2 ML VIAL ONE; NITROGLYCERIN SL TABS 0.4 MG TAB SUBLINGUAL PRN; RX INFO: IV CONTRAST WAS GIVEN 1 EACH MISC MISCELLANE PRN; SODIUM CHLORIDE 0.9% 1,000 ML IV ONE; SODIUM CHLORIDE 0.9% 1,000 ML IV SCH; SODIUM CHLORIDE 0.9% 1,000 ML in EMPTY BAG 1 BAG IV ONE; VERAPAMIL 2.5 MG/ML 2 ML AMP ONE; VERAPAMIL SYRINGE (5 MG/10 ML) INTRAARTER ONE
[2017-05-23 08:06] VITALS: RESP 18
[2017-05-23 08:59] LABS: Anion Gap 11 mmol/L; Blood Urea Nitrogen 20 mg/dL (7-17); Calcium 10.2 mg/dL (8.4-10.2); Carbon Dioxide 26 mmol/L (22-30); Chloride 103 mmol/L (98-107); Glucose 105 mg/dL (74-99); Potassium 3.8 mmol/L (3.5-5.1); Sodium 140 mmol/L (137-145)
--- NOTE | 2017-05-23 11:35 | CC ---
CARDIAC CATHETERIZATION REPORT DATE OF SERVICE: 05/23/2017 PERFORMING PHYSICIAN: Tony Pugh MD, line ordering clinician. PROCEDURE PERFORMED: Selective right and left coronary angiogram. INDICATION: This is a pleasant 89-year-old female patient who was not feeling well lately where she was feeling tired, fatigued and has no energy. Beside that, she was having some episodes of chest pressure. In view of that, a heart catheterization was recommended. APPROACH: Right radial artery. COMPLICATION: None. LEVEL OF SEDATION: Moderate with sedation length of 14 minutes. PROCEDURE DESCRIPTION: After obtaining an informed consent, the patient was brought to cardiac laboratory technologist. The right radial artery was cannulated using micropuncture technique, and the micropuncture wire passed easily then I placed a 6-Frisian sheath in the right radial artery and then I gave the patient 2 mg of verapamil IA and 10,000 units of heparin IV. After that, I did selective right and left coronary angiogram using JR4 and JL3.5 catheters. The procedure was completed without any complication. SELECTIVE CORONARY ANGIOGRAM: 1. The RCA is a large caliber vessel and it is a dominant vessel. The RCA has intermediate disease in the midportion. 2. The left main is angiographically normal. It bifurcates into the left circumflex and left anterior descending artery. 3. The left circumflex is a large caliber vessel. It is a nondominant vessel. The proximal circumflex is angiographically normal. The mid circumflex has disease appeared to be in the range of 50%. This is just before the bifurcation of the first OM, which seems to be angiographically normal and second OM which seems to be also angiographically normal before the circumflex continued as a small-caliber vessel in the AV groove. 4. The left anterior descending artery; the proximal LAD appeared to be angiographically normal. It gives rise into first diagonal branch which has a disease appeared to be in the range of 50%. The mid LAD and distal LAD are angiographically normal. CONCLUSION: Intermediate triple-vessel coronary artery disease. POSTPROCEDURE MANAGEMENT: 1. Maximize medical treatment. 2. Follow up with the patient. MMODL / IJN: [id number] /
[2017-05-23 11:41] VITALS: TEMP 98
--- NOTE | 2017-05-23 11:41 | LTR ---
DATE OF SERVICE: 05/23/2017 RE: Jewel Lauryn Dear Dr. Luna; Ms. Lauryn Holloway underwent a heart catheterization and that revealed intermediate triple-vessel coronary artery disease. I want to thank you for allowing me to participate in her care and please do not hesitate to call if you have any question or concern. Sincerely, MD QUINN Morales / JULIANAN: [id number] /
[2017-05-23 14:34] VITALS: PULSE 52
[2017-05-23 15:27] VITALS: BP 134/70
== END ==
LOC: CATHCVL 07:14
PROVIDERS: ATTEND Internal Medicine Interventional Cardiology
DX: I25.110 Atherosclerotic heart disease of native coronary artery with unstable angina pectoris (principal); I10 Essential (primary) hypertension; E78.5 Hyperlipidemia, unspecified; Z82.49 Family history of ischemic heart disease and other diseases of the circulatory system; E78.00 Pure hypercholesterolemia, unspecified; I49.5 Sick sinus syndrome
CPT/HCPCS: 93454; 80048; C1769; C1894; J2001; J2250; Q9967; J1644